=== PATIENT | female | born 2000 | race Two or more races ===

== ENCOUNTER 2024-11-27 16:09 | Emergency (ER) | payer BC, SELFPAY ==
[2024-11-27 16:11] VITALS: BMI 33.6
[2024-11-27 16:31] VITALS: BP 130/84; PULSE 76; RESP 18; TEMP 37.1; O2SAT 95
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
[2024-11-27 17:43] LABS: Collection Type, Urine Voided; RBC,Urine 0 /hpf (0-3); WBC,Urine 0 /hpf (0-5)
[2024-11-27 17:49] LABS: Bacteria,Urine Rare; Bilirubin,Urine Negative (Negative); Blood,Urine Negative (Negative); Clarity,Urine Clear (Clear/Hazy); Color,Urine Lt-Yellow (Lt Yel-Yel); Culture Indicated,Urine Not Indicated; Glucose, Urine Negative (Negative); Ketones,Urine Negative (Negative); Leukocyte Esterase,Urine Negative (Negative); Nitrite,Urine Negative (Negative); PH,Urine 8.0 (5.0-7.0); Protein,Urine Negative (Neg - Trace); Specific Gravity,Urine 1.026 (1.001-1.035); Squamous Epithelial Cell,Urine 4 /hpf (0-5); Urobilinogen,Urine 3.0 mg/dL (0.0-1.0)
[2024-11-27 17:50] LABS: HCG Qualitative,Urine Negative
[2024-11-27] MEDS: HYDROcodone/APAP 5/325 TABLET 1 TAB PO (18:37)
[2024-11-27] MEDS: KETOROLAC INJ 60 MG/2 ML VIAL IM (18:39)
[2024-11-27] MEDS: METOCLOPRAMIDE INJ 5 MG/ML VIAL 2 ML 10 MG IM (18:40)
== END 2024-11-27 19:11 | disposition home or self-care (01) ==
PROVIDERS: Nurse Practitioner Family; Emergency Provider Family Medicine
DX: M54.50 Low back pain, unspecified (principal)
CPT/HCPCS: 81001; 81025; 96372; 99283; J1885; J2765; A9270